=== PATIENT | female | born 1985 | race Caucasian/White ===

== ENCOUNTER 2018-03-26 12:30 | Outpatient (CLI) | payer BC, SELFPAY | END 2018-03-26 13:00 | disposition home or self-care (01) | PROVIDERS: PCP Family Medicine; Visit Provider Obstetrics & Gynecology | DX: Z45.2 Encounter for adjustment and management of vascular access device (principal) | CPT/HCPCS: 96523 ==

== ENCOUNTER 2018-04-03 13:09 | Outpatient (CLI) | payer BC, SELFPAY | END 2018-04-03 13:20 | disposition home or self-care (01) | LOC: INF 13:09 | PROVIDERS: PCP Family Medicine; Visit Provider Obstetrics & Gynecology | DX: Z45.2 Encounter for adjustment and management of vascular access device (principal); Z48.00 Encounter for change or removal of nonsurgical wound dressing | CPT/HCPCS: 96523 ==

== ENCOUNTER 2018-04-10 12:55 | Outpatient (CLI) | payer BC, SELFPAY | END 2018-04-10 13:20 | disposition home or self-care (01) | LOC: INF 12:57 | PROVIDERS: PCP Family Medicine; Visit Provider Obstetrics & Gynecology | DX: Z45.2 Encounter for adjustment and management of vascular access device (principal) | CPT/HCPCS: G0463 ==

== ENCOUNTER → 2019-03-13 12:25 | Outpatient (CLI) | payer BC, SELFPAY ==
--- NOTE | 2019-03-13 12:31 | US_ITS ---
US soft tissue head and neck CLINICAL INDICATION: ITS.REASON: LYMPHADENOPATHY ORDERING PHYSICIAN: Antony Blandon MD PATIENT AGE: 33 years Comparison: None FINDINGS: There is homogeneous echogenicity of the submandibular and parotid glands. Small lymph node is present in the lateral right neck at 13 x 0.5 cm. 13 x 5 mm node is present in the left lateral neck region. Along the lower pole left lobe the thyroid gland there is a 6 mm hypoechoic nodule. IMPRESSION: There are small nodes in the neck. CT may be of further value if clinically desired Incidental note is made of a 6 mm hypoechoic nodule in the left lobe of the thyroid gland which may be better evaluated with dedicated thyroid ultrasound if clinically desired No large areas of adenopathy. No fluid collections
--- NOTE | 2019-03-13 13:36 | MR_ITS ---
MR head/brain wo/w con HISTORY: Headache, dizziness, blurred vision, dilated left pupil ITS.REASON: NONINTRACTABLE HEADACHE ORDERING PHYSICIAN: Antony Blandon MD PATIENT AGE: 33 years Comparison: None TECHNIQUE: Standard multiplanar multiecho sequences are performed without and with gadolinium enhancement. FINDINGS: No midline shift, mass effect, hydrocephalus, or acute infarction is evident. There is a small heterogeneous area of increased T2 signal within the medial aspect of the left frontal lobe at the region of the most in the superior and anterior aspect of the head of the caudate nucleus measuring approximately 1 cm. This has small punctate areas of decreased T1 and increased T2 signal with some minimal punctate enhancement and may be due to a small cavernous hemangioma shows decreased signal intensity on the diffusion-weighted images. The cerebellopontine angles, cerebellum, and brainstem are unremarkable. No mastoid effusion sinus air-fluid level. IMPRESSION: 1. Small area of heterogeneous signal intensity in the anterior inferior aspect of the caudate nucleus on the left at approximately 1 cm as described above with some minimal punctate enhancement. This may represent a cavernous malformation/cavernous hemangioma. No mass effect. No midline shift. No evidence of acute intracranial hemorrhage. Follow-up suggested to confirm stability. Consider neurology consult. 2. Otherwise negative MRI of the brain without and with contrast
--- NOTE | 2019-03-13 14:40 | HMH.ITSHM ---
Current Home Medications as stated by this patient Georgette Lam or field service representative. []LEXAPRO VITAMINS
== END ==
PROVIDERS: PCP Family Medicine; Visit Provider Family Medicine
DX: R59.0 Localized enlarged lymph nodes (principal); R51 Headache; H57.02 Anisocoria
CPT/HCPCS: 70553; 76536; A9576

== ENCOUNTER → 2019-03-25 15:54 | Outpatient (CLI) | payer BC, SELFPAY | PROVIDERS: Visit Provider Internal Medicine Endocrinology, Diabetes & Metabolism | DX: I89.0 Lymphedema, not elsewhere classified (principal) | CPT/HCPCS: 36415; 87040 ==

== ENCOUNTER → 2019-03-30 13:42 | Outpatient (CLI) | payer BC, SELFPAY ==
--- NOTE | 2019-03-30 14:00 | CT_ITS ---
CT soft tissue neck w con CLINICAL INDICATION: ITS.REASON: ENLARGED LYMPH NODES,AXILLA ADENOPATHY ORDERING PHYSICIAN: Haylee Lowe MD PATIENT AGE: 34 years COMPARISON: None TECHNIQUE:Axial images obtained with sagittal and coronal reformats. All CT scans at the facility use one or more dose reduction, viz: automated exposure control, ma/kV adjustment per patient size (including targeted exams where dose is matched to indication, i.e. head), or iterative reconstruction technique. FINDINGS: Bones: Unremarkable. No fracture, lytic, or blastic changes evident Extracranial soft tissues: There are a few small level 1 and level 2 lymph nodes. Maximal short axis diameter is 7.1 mm on the left side and this is within normal limits. The sellar glands, palatine tonsils and oral cavity structures appear normal. There are no asymmetric masses or soft tissue densities. There is a 3 mm hypodense focus at the lower pole of the left lower lobe. Airway structures are patent. The epiglottis and laryngeal area is normal. Sinuses: Unremarkable. No air-fluid levels or significant mucosal thickening Orbits: Unremarkable Other: No other pertinent findings IMPRESSION: A few small level 1 and level 2 lymph nodes which are benign and likely reactive. 3 mm nonspecific lower pole left thyroid lobe nodule, too small to characterize and at this time is likely benign.
--- NOTE | 2019-03-30 14:00 | CT_ITS ---
CT abdomen pelvis w con CLINICAL INDICATION: ITS.REASON: AXILLA ADENOPATHY,ENLARGED LYMPH NODES, ORDERING PHYSICIAN: Haylee Lowe MD PATIENT AGE: 34 years COMPARISON: None TECHNIQUE: Axial images obtained with sagittal and coronal reformats. All CT scans at the facility use one or more dose reduction, viz: automated exposure control, ma/kV adjustment per patient size (including targeted exams where dose is matched to indication, i.e. head), or iterative reconstruction technique. PROCEDURE: Oral Contrast: Yes IV Contrast: Yes . FINDINGS: Lower thorax: No acute finding ABDOMEN: Liver: No masses or biliary dilatation. Gallbladder: There are clips in the gallbladder fossa. Pancreas: No masses or peripancreatic fluid collections. Spleen: Unremarkable. Adrenals: Unremarkable Kidneys/ureters: No masses. No renal calculi. No hydronephrosis. No perinephric fluid collections. No ureteral dilatation or obvious ureteral calculi. Stomach bowel: Nondistended. No obvious mass or thickening. Appendix: No evidence of appendicitis. PELVIS: Reproductive: Unremarkable Bladder: Nondistended. No obvious stones or masses. ABDOMEN & PELVIS: Peritoneum: No abnormal fluid collections. No obvious inflammatory changes. No free air. Lymph nodes: No enlarged lymph nodes apparent. Vasculature: No evidence of abdominal aortic aneurysm. No retroperitoneal hemorrhage evident. Bones: No acute fracture IMPRESSION: Cholecystectomy. No acute process and no definite abnormal adenopathy.
--- NOTE | 2019-03-30 14:09 | CT_ITS ---
CT chest w con HISTORY: ITS.REASON: LYMPHADENOPATHY ORDERING PHYSICIAN: Haylee Lowe MD PATIENT AGE: 34 years COMPARISON: None TECHNIQUE: Axial images obtained following the administration of 75 mL of Optiray 350 . Sagittal, and coronal reformatted images are also generated and reviewed. All CT scans at the facility use one or more dose reduction, viz: automated exposure control, ma/kV adjustment per patient size (including targeted exams where dose is matched to indication, i.e. head), or iterative reconstruction technique. FINDINGS: Airway structures are patent without pneumothorax or pleural effusion. Lungs are clear. Heart size is normal. There is small amount of soft tissue density at the anterior superior mediastinum. This is likely from residual mild thymus tissue. There are a few small partially fatty benign appearing axillary lymph nodes. IMPRESSION: Clear lungs. Probable mild residual thymus tissue. Bilateral axillary small lymph nodes appear benign at this time.
== END ==
PROVIDERS: PCP Nurse Practitioner; Visit Provider Internal Medicine Medical Oncology
DX: E04.1 Nontoxic single thyroid nodule (principal); R59.0 Localized enlarged lymph nodes; R59.1 Generalized enlarged lymph nodes
CPT/HCPCS: 70491; 71260; 74177; Q9967

== ENCOUNTER → 2019-12-01 08:29 | Outpatient (CLI) | payer BC, SELFPAY ==
--- NOTE | 2019-12-01 08:34 | MR_ITS ---
PROCEDURE: MR HEAD/BRAIN WO/W CON CLINICAL INDICATION: CAVERNOUS HEMANGIOMA Follow-up cavernous hemangioma TECHNIQUE: Routine multiplanar multi echo sequences are performed without and with gadolinium enhancement. FINDINGS: No midline shift or mass effect is evident. No evidence of acute infarction. The cerebellopontine angles, cerebellum, and brainstem have an unremarkable appearance. Post enhanced images show some minimal nodular enhancement within the inferior aspect of the head of the caudate similar to the previous exam.. There is decreased signal intensity at this region on the flash hemo/gradient echo. The decreased signal intensity is both focal with diffuse slight decrease intensity at this area. The more diffuse area of decreased intensity measures approximately 8-9 mm. This may reflect an old area of hemorrhage.. No other significant anomalies are evident. No mastoid effusion or sinus air-fluid level. IMPRESSION: 1. Overall no significant change in the small cavernous hemangioma in the region of the inferior aspect of the head of the caudate. The gradient echo images do show some focal decreased intensity consistent with the cavernous hemangioma along with a less intense slightly larger area of decreased intensity measuring 9 mm which may suggest an older area of hemorrhage. No acute hemorrhage evident at this time. Dictated by: Peter Herring MD 12/04/2019 15:12 Electronically signed by Peter Herring MD in [place] 12/04/2019 15:12
--- NOTE | 2019-12-01 09:30 | CA_ITS ---
APPROVED REPORT EXAM: Comprehensive 2D, Doppler, and color-flow Echocardiogram Voip Technician: Germaine St RT(R) Ht: 5 ft 3 in Wt: 134lbs BSA: 1.63 BP: 127/39 mmHg Indications: Palpitations, murmur, fatigue, SOB, family history of HD 2D Dimensions LVOT 1.98 cm (M/F) 1.5-2.5 M-Mode Dimensions RVDd 2.52 cm (0.9-2.6) LVDd 4.54 cm (3.5-5.7) LVDs 3.33 cm (3.5-5.7) IVSd 0.64 cm (0.6-1.1) PWd 0.91 cm (0.6-1.1) EF (Teich) 52.20% FS 26.70% EDV (Teich) 94.40 mL ESV (Teich) 45.10 mL LV Diastology E/A Ratio 1.71 Mitral Valve MV A Velocity 55.00 (40-130 cm/s) Left Ventricle Left atrium is normal size, left ventricle is normal size, there is no concentric left ventricular hypertrophy, visually estimated ejection fraction 55% with no regional wall motion abnormality. Diastolic parameters are within normal range. Right Ventricle Right atrium and right ventricular normal size and contractility. Aortic Valve Aortic valve is grossly normal, there is no aortic stenosis or aortic insufficiency. Mitral Valve Mitral valve is grossly normal, there is trace mitral regurgitation. Tricuspid Valve Tricuspid valve is grossly normal, there is trace tricuspid regurgitation. Pulmonic Valve Pulmonic valve is poorly visualized. Great Vessels Aortic root is normal size. Pericardium No significant pericardial effusion noted. Conclusion 1. Normal left ventricular size, preserved left ventricular systolic function, visually estimated ejection fraction 55% with no regional wall motion abnormality, diastolic parameters are within normal range. 2. Trace mitral and tricuspid regurgitation. 3. No significant pericardial effusion noted. Electronically signed by : Dayne Atkins, 12/01/2019 20:09:32
== END ==
PROVIDERS: PCP Nurse Practitioner; Visit Provider Neurological Surgery
DX: R00.2 Palpitations (principal); D18.00 Hemangioma unspecified site
CPT/HCPCS: 70553; 93225; 93226; 93306; A9576

== ENCOUNTER → 2020-02-17 19:10 | Outpatient (CLI) | payer BC, SELFPAY ==
--- NOTE | 2020-02-17 19:36 | ECG_ITS ---
APPROVED REPORT Exam: Resting ECG HR:69 bpm ECG Measurements Heart Rate 69 AXES MA 174 P 50 QRSd 86 QRS 71 QT 394 T 52 QTc 422 <Conclusion> Normal sinus rhythm Normal ECG Electronically signed by : Young Monge, 02/19/2020 06:32:57
== END ==
PROVIDERS: PCP Nurse Practitioner; Visit Provider Internal Medicine Cardiovascular Disease
DX: R00.2 Palpitations (principal); R06.02 Shortness of breath; D18.00 Hemangioma unspecified site
CPT/HCPCS: 93005

== ENCOUNTER 2020-05-05 09:25 | Outpatient (CLI) | payer BC, SELFPAY ==
[2020-05-05 09:45] VITALS: BP 106/64; PULSE 76; RESP 20; TEMP 36.7; O2SAT 95
[2020-05-05 10:20] VITALS: BP 101/68; PULSE 68; RESP 20; TEMP 36.9; O2SAT 95
== END 2020-05-05 10:15 | disposition home or self-care (01) ==
LOC: INF 09:32
PROVIDERS: Visit Provider Internal Medicine Medical Oncology
DX: D50.9 Iron deficiency anemia, unspecified (principal); T45.4X5A Adverse effect of iron and its compounds, initial encounter
CPT/HCPCS: 96365; J1439

== ENCOUNTER 2020-05-16 09:56 | Outpatient (CLI) | payer BC, SELFPAY ==
[2020-05-16 10:04] VITALS: BP 106/42; PULSE 69; RESP 18; TEMP 36.4; O2SAT 100
[2020-05-16 10:34] VITALS: BP 102/50; PULSE 67; RESP 18; O2SAT 99
[2020-05-16 10:45] VITALS: BP 104/52; PULSE 65; RESP 18; O2SAT 100
== END 2020-05-16 10:45 | disposition home or self-care (01) ==
LOC: INF 09:56
PROVIDERS: Visit Provider Internal Medicine Medical Oncology
DX: D50.9 Iron deficiency anemia, unspecified (principal); T45.4X5A Adverse effect of iron and its compounds, initial encounter
CPT/HCPCS: 96365; J1439

== ENCOUNTER → 2020-07-26 11:44 | Outpatient (CLI) | payer BC, SELFPAY ==
[2020-07-26 13:20] LABS: Iron 50 ug/dL (37-170); Phosphorous 2.8 mg/dl (2.5-4.5)
[2020-07-26 13:29] LABS: Total Iron Binding Capacity 291 ug/dL (265-497)
[2020-07-26 13:33] LABS: Basophils # 0.1 K/mm3 (0-0.2); Eosinophils # 0.3 K/mm3 (0.0-0.4); Eosinophils % 6.3 % (0.1-12.0); Hematocrit 34.5 % (37.0-47.0); Hemoglobin 11.1 g/dL (12.2-16.2); Lymphocytes # 1.3 K/mm3 (0.7-4.5); Lymphocytes % 24.4 % (10-50); Mean Corpuscular HGB Conc 32.2 g/dL (31.8-35.4); Mean Corpuscular Hemoglobin 29.9 pg (27.0-31.2); Mean Corpuscular Volume 92.8 fl (81-99); Mean Platelet Volume 7.7 fl (7.4-10.4); Monocytes # 0.3 K/mm3 (0.1-1.0); Monocytes % 5.3 % (1.7-9.3); Neutrophils # 3.5 K/mm3 (1.8-7.8); Neutrophils % 63.2 % (37.0-80.0); Platelet Count 419 K/mm3 (142-424); Red Blood Count 3.72 M/mm3 (4.20-5.40); Red Cell Distribution Width 15.5 % (11.5-17.5); White Blood Count 5.5 K/mm3 (4.8-10.8)
[2020-07-26 13:53] LABS: Ferritin 124 ng/ml (6.24-137)
== END ==
PROVIDERS: PCP Nurse Practitioner; Referring Provider Internal Medicine Medical Oncology; Visit Provider Nurse Practitioner
DX: Z03.818 Encounter for observation for suspected exposure to other biological agents ruled out (principal); D64.9 Anemia, unspecified
CPT/HCPCS: 82728; 83540; 83550; 84100; 85025; U0003

== ENCOUNTER → 2021-08-02 16:02 | Outpatient (CLI) | payer BC, SELFPAY ==
--- NOTE | 2021-08-02 16:07 | XR_ITS ---
PROCEDURE INFORMATION: Exam: XR Chest Exam date and time: 08/02/2021 4:07 PM Age: 36 years old Clinical indication: Cough and shortness of breath; Patient HX: R/O covid TECHNIQUE: Imaging protocol: XR of the chest. Views: 1 view. COMPARISON: CHESTW CT chest w con 03/30/2019 2:08 PM FINDINGS: Lungs: Unremarkable. No consolidation. Pleural spaces: Unremarkable. No pleural effusion. No pneumothorax. Heart/Mediastinum: Unremarkable. No cardiomegaly. Bones/joints: Unremarkable. IMPRESSION: No acute findings.
[2021-08-02 17:00] LABS: Basophils # 0.1 K/mm3 (0-0.2); Eosinophils # 0.2 K/mm3 (0.0-0.4); Eosinophils % 2.4 % (0.1-12.0); Hematocrit 42.6 % (37.0-47.0); Lymphocytes # 1.8 K/mm3 (0.7-4.5); Lymphocytes % 19.2 % (10-50); Mean Corpuscular Volume 94.1 fl (81-99); Mean Platelet Volume 7.9 fl (7.4-10.4); Monocytes # 0.5 K/mm3 (0.1-1.0); Monocytes % 5.2 % (1.7-9.3); Neutrophils # 6.6 K/mm3 (1.8-7.8); Neutrophils % 72.2 % (37.0-80.0); Platelet Count 361 K/mm3 (142-424); Red Blood Count 4.53 M/mm3 (4.20-5.40); Red Cell Distribution Width 13.6 % (11.5-17.5); White Blood Count 9.2 K/mm3 (4.8-10.8)
== END ==
PROVIDERS: PCP Nurse Practitioner; Visit Provider Nurse Practitioner
DX: Z20.822 Contact with and (suspected) exposure to COVID-19 (principal)
CPT/HCPCS: 36415; 71045; 85025; 87275; 87276; C9803; U0003; U0005